=== PATIENT | female | born 2000 | race African-American/Black ===

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

== ENCOUNTER 2024-03-17 02:23 | Emergency (ER) | payer SELFPAY ==
[~2024-03-17] VITALS: Ht 165.1 cm; Wt 85.0 kg
[2024-03-17] MEDS: LORazepam 0.5 MG TAB PO ONE (06:02)
[2024-03-17] MEDS: SODIUM CHLORIDE 0.9% 1,000 ML IV ONE (06:10)
[2024-03-17 06:21] LABS: Basophils # (auto) 0 10 ^3/uL (0-0.2); Basophils % (auto) 0.5 % (0.0-2.0); Eosinophils # (auto) 0 10 ^3/uL (0-0.8); Eosinophils % (auto) 0.4 % (0.0-7.0); Hemoglobin 13.3 g/dL (12.2-16.2); Lymphocytes # (auto) 2.9 10 ^3/uL (0.4-5.4); Lymphocytes % (auto) 32.7 % (10.0-50.0); Mean Corpuscular Hemoglobin 32.2 pg (28.0-32.0); Mean Corpuscular Hgb Conc. 33.3 g/dL (32.0-36.0); Mean Corpuscular Volume 96.7 fL (80.0-100.0); Monocytes % (auto) 11.7 % (0.0-12.0); Neutrophils # (auto) 4.9 10 ^3/uL (1.6-8.6); Neutrophils % (auto) 54.7 % (37.0-80.0); Nucleated Red Blood Cells % 0.1 %; Red Blood Cells 4.14 10^6/uL (4.0-5.20); Red Cell Distribution Width 15.5 % (11.8-14.3); White Blood Cell 8.9 10^3/uL (4.4-10.8)
[2024-03-17 06:35] LABS: Chloride 104 mmol/L (98-107); Potassium 3.3 mmol/L (3.5-5.1); Sodium 136 mmol/L (136-145)
[2024-03-17 06:36] LABS: Anion Gap 8 (5-15); Calcium 9.5 mg/dL (8.7-10.4); Carbon Dioxide 24 mmol/L (20-30)
[2024-03-17 06:41] LABS: BUN/Creatinine Ratio 6.9 (10.0-20.0); Blood Urea Nitrogen 6 mg/dL (9-23); Glucose 89 mg/dL (74-106)
[2024-03-17 07:09] LABS: Blood Alcohol < 3.0 mg/dL (<10)
[2024-03-17] MEDS: POTASSIUM EFFERVESENT TAB 25 MEQ PO ONE (07:45)
[2024-03-17 07:49] VITALS: BP 135/80; PULSE 100; RESP 18; TEMP 97.2; O2SAT 100
== END 2024-03-17 07:48 | disposition home or self-care (01) ==
LOC: ER 02:23
DX: F41.9 Anxiety disorder, unspecified (principal); E87.6 Hypokalemia
CPT/HCPCS: 36415; 80048; 80320; 84484; 85025; 93005; 96360; 99284; J7030